=== PATIENT | male | born 1955 | race Caucasian/White ===

== ENCOUNTER 2018-03-02 15:57 | Emergency (ER) | payer SELFPAY ==
[2018-03-02 16:03] VITALS: BMI 34.4
--- NOTE | 2018-03-02 16:26 | ED PDOC ---
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 Patient notes that the pain worsens with movement. Patient denies having dysuria, vomiting, and a history of cancer. PMD: None provided Past Medical History Reviewed: Historical Data, Nursing Documentation, Vital Signs Vital Signs: Last Vital Signs Temp 98.6 F 03/02/18 16:02 Pulse 68 03/02/18 16:02 Resp 16 03/02/18 16:02 BP 197/89 H 03/02/18 16:02 Pulse Ox 98 03/02/18 16:02 - Medical History PMH: Diabetes, Hypercholesterolemia - Family History Family History: States: No Known Family Hx - Social History Current smoker - smoking cessation education provided: No Alcohol: None Drugs: Denies - Home Medications Home Medications: Ambulatory Orders Medication Instructions Recorded Cefuroxime Axetil [Cefuroxime] 500 mg PO BID #14 tablet 03/02/18 Ibuprofen [Motrin Tab] 600 mg PO Q8 PRN #21 tab 03/02/18 Tamsulosin HCl [Flomax] 0.4 mg PO DAILY #14 cap.er.24h 03/02/18 - Allergies Allergies/Adverse Reactions: Allergies Allergy/AdvReac Type Severity Reaction Status Date / Time No Known Allergies Allergy Verified 03/02/18 16:19 Review of Systems ROS Statement: Except As Marked, All Systems Reviewed And Found Negative Gastrointestinal: Negative for: Vomiting Genitourinary Male: Negative for: Dysuria Musculoskeletal: Positive for: Back Pain (lower) Physical Exam - Reviewed Nursing Documentation Reviewed: Yes Vital Signs Reviewed: Yes - Physical Exam Appears: Positive for: Well, Non-toxic, No Acute Distress Head Exam: Positive for: ATRAUMATIC, NORMOCEPHALIC Skin: Positive for: Normal Color, Warm, Dry Cardiovascular/Chest: Positive for: Regular Rate, Rhythm Respiratory: Positive for: Normal Breath Sounds Gastrointestinal/Abdominal: Positive for: Normal Exam, Soft. Negative for: [place] Back: Positive for: Other (paralumbar tenderness) Neurologic/Psych: Positive for: Alert, Oriented (3x) - Laboratory Results Result Diagrams: 03/02/18 16:50 03/02/18 16:50 - ECG O2 Sat by Pulse Oximetry: 98 (RA) Pulse Ox Interpretation: Normal - Radiology X-Ray: Viewed By Me, Read By Radiologist (see MDM note) - CT Scan/US CT abdomen and pelvis Other Rad Studies (CT/US): Read By Radiologist, Radiology Report Reviewed (see MDM note) - Progress ED Course And Treament: d/w Dr. Gonzalez. Rocephin 1 gm iv in ED. We will give rx for ceftin/flomax/motrin and patient to f/u in his office this week. Medical Decision Making Medical Decision Makin:10 Initial impression: 63 year old male with lower back pain. Initial plan: * XRay LS spine AP/LAT * CMP * lipase * CBC w/ diff * toradol 15 mg IVP * reevaluation 17:41 XRay LS spine read and reviewed by radiologist FINDINGS: BONES: Normal alignment. No listhesis. No fracture. DISC SPACES: Mild multilevel degenerative spondylosis of the lumbar spine.. There is moderate disc space narrowing at the L5-S1 level more so along the posterior disc margin with small marginal anterior osteophyte formation. Facets also slightly overgrown. Minor posterior disc space narrowing seen at the remaining levels with small marginal anterolateral osteophyte formation. OTHER FINDINGS: There is an elliptical shaped homogeneous hyperdense 14 mm x 10.5 mm homogeneous radiopaque density seen overlying the right parasagittal a anterior mid lower abdomen of uncertain etiology. IMPRESSION: No evidence of acute compression fractures no retropulsed fragments. Elliptical shaped hyperdense focus within the right mid/anterior abdomen of uncertain etiology. Clinical correlation recommended to determine whether additional imaging is required. 18:32 CT abdomen and pelvis read and reviewed by radiologist FINDINGS: LUNG BASES: There is mild scarring of the lung bases. LIVER: Unremarkable. GALLBLADDER AND BILE DUCTS: The gallbladder appears within normal limits. No radioopaque gallstones are seen. No biliary ductal dilatation is evident. PANCREAS: Unremarkable. SPLEEN: Unremarkable. ADRENAL GLANDS: There is a 2.1 cm right adrenal gland adenoma. KIDNEYS, URETERS, AND BLADDER: There is a 1.2 x 1.3 cm rounded calculus in the right renal collecting system. There is some fullness to the right renal collecting system. There is an approximate 3 x 2.8 cm cyst at the mid posterior aspect right kidney. Neither ureter appears dilated. Left kidney appears within normal limits. Prostate gland appears moderately enlarged. STOMACH AND BOWEL: Unremarkable appearance of the stomach and bowel. No evidence of bowel obstruction. No evidence suggesting enteritis or colitis. APPENDIX: No evidence of acute appendicitis on CT examination. PERITONEUM: No free fluid. No free air. LYMPH NODES: No lymphadenopathy is evident. VASCULATURE: No evidence of abdominal aortic aneurysm. BONES: No aggressive appearing osseous lesion. No acute osseous pathology evident. IMPRESSION: Rounded calculus measuring approximately 1.2 x 1.3 cm at the right renal collecting system with some prominence of the renal collecting system. Neither ureter dilated. Right renal cyst of 3 x 2.8 cm. Right adrenal gland adenoma. Moderate enlargement of the prostate gland. If warranted correlation with dedicated contrast-enhanced CT examination recommended. Scribe Attestation: Documented by Jackie Danielle, acting as a scribe for Hector Lipscomb PA-C. Provider Scribe Attestation: All medical record entries made by the Scribe were at my direction and personally dictated by me. I have reviewed the chart and agree that the record accurately reflects my personal performance of the history, physical exam, medical decision making, and the department course for this patient. I have also personally directed, reviewed, and agree with the discharge instructions and disposition. Disposition - Clinical Impression Clinical Impression: Renal stone - Patient ED Disposition Is Patient to be Admitted: No - Disposition Referrals: Manas Beckman MD [Staff Provider] - Disposition: Routine/Home Disposition Time: 19:24 Condition: FAIR Prescriptions: Cefuroxime Axetil [Cefuroxime] 500 mg PO BID #14 tablet Ibuprofen [Motrin Tab] 600 mg PO Q8 PRN #21 tab PRN Reason: Pain, Moderate (4-7) Tamsulosin HCl [Flomax] 0.4 mg PO DAILY #14 cap.er.24h Instructions: Kidney Stones in Adults
[2018-03-02 17:43] LABS: BASO # 0.1 K/uL (0.0-0.2); BASO % 0.9 % (0.0-2.0); EOS # 0.1 K/uL (0.0-0.7); EOS % 1.2 % (0.0-4.0); HEMOGLOBIN 15.1 g/dL (12.0-18.0); LYMPH # 2.9 K/uL (1.0-4.3); LYMPH % 28.7 % (20.0-40.0); MEAN CELL VOLUME 85.1 fl (80.0-94.0); MEAN CORPUSCULAR HEMOGLOBIN 28.7 pg (27.0-31.0); MEAN CORPUSCULAR HGB CONC 33.8 g/dL (33.0-37.0); MEAN PLATELET VOLUME 8.6 fl (7.2-11.7); MONO # 0.6 K/uL (0.0-0.8); MONO % 5.5 % (0.0-10.0); NEUT # 6.5 K/uL (1.8-7.0); NEUT % 63.7 % (50.0-75.0); NRBC % 0.2 % (0.0-0.0); RBC 5.26 Mil/uL (4.40-5.90); RED CELL DISTRIBUTION WIDTH 13.9 % (11.5-14.5); WHITE BLOOD COUNT 10.2 K/uL (4.8-10.8)
--- NOTE | 2018-03-02 17:46 | RAD ---
Date of service: 03/02/2018 PROCEDURE: Radiographs of the Lumbar Spine. HISTORY: lower back pain COMPARISON: No prior study available comparison. FINDINGS: BONES: Normal alignment. No listhesis. No fracture. DISC SPACES: Mild multilevel degenerative spondylosis of the lumbar spine.. There is moderate disc space narrowing at the L5-S1 level more so along the posterior disc margin with small marginal anterior osteophyte formation. Facets also slightly overgrown. Minor posterior disc space narrowing seen at the remaining levels with small marginal anterolateral osteophyte formation. OTHER FINDINGS: There is an elliptical shaped homogeneous hyperdense 14 mm x 10.5 mm homogeneous radiopaque density seen overlying the right parasagittal a anterior mid lower abdomen of uncertain etiology. IMPRESSION: No evidence of acute compression fractures no retropulsed fragments. Elliptical shaped hyperdense focus within the right mid/anterior abdomen of uncertain etiology. Clinical correlation recommended to determine whether additional imaging is required.
[2018-03-02 17:53] LABS: ALB/GLOB RATIO 1.3 (1.0-2.1); ALBUMIN 4.6 g/dL (3.5-5.0); BLOOD UREA NITROGEN 20 mg/dl (9-20); CALCIUM 9.7 mg/dL (8.4-10.2); GFR NON-AFRICAN AMERICAN > 60; LIPASE 286 U/L (23-300); URINE BILIRUBIN NEGATIVE (NEGATIVE); URINE BLOOD MODERATE (NEGATIVE); URINE CLARITY SLIGHTY-CLOUDY (Clear); URINE COLOR YELLOW (YELLOW); URINE GLUCOSE (UA) NEG (NEGATIVE); URINE LEUKOCYTE ESTERASE TRACE Leu/uL (Negative); URINE PROTEIN 30 mg/dL (NEGATIVE); URINE UROBILINOGEN 0.2-1.0 mg/dL (0.2-1.0)
[2018-03-02 17:58] LABS: ALT/SGPT 28 U/L (21-72); AST/SGOT 36 U/L (17-59)
[2018-03-02] MEDS ORDERED: Sodium Chloride 0.9% 1,000 ML IV SCH (18:15)
[2018-03-02] MEDS ORDERED: cefTRIAXone (Rocephin) 1 gm Inj IVPB ONE (19:23)
[2018-03-02 20:07] VITALS: BP 184/81; PULSE 71; RESP 15; TEMP 98.5; O2SAT 97
--- NOTE | 2018-03-03 14:36 | CT ---
Date of service: 03/02/2018 PROCEDURE: CT Abdomen and Pelvis. HISTORY: r/o kidney stone COMPARISON: None. TECHNIQUE: Contiguous axial images of the abdomen and pelvis performed in standard fashion without oral or intravenous contrast material. Additional 2D sagittal and coronal reformats generated. Radiation dose: Total exam DLP = 757.65 mGy-cm. This CT exam was performed using one or more of the following dose reduction techniques: Automated exposure control, adjustment of the mA and/or kV according to patient size, and/or use of iterative reconstruction technique. FINDINGS: LOWER THORAX: Heart is mildly enlarged. No significant pericardial effusion. Tiny hiatal hernia with slight wall thickening of the distal esophagus likely due to protrusion of gastric mucosa. The minor scarring changes seen in the lingular and middle lobe regions. LIVER: Unremarkable. No gross lesion or ductal dilatation. GALLBLADDER AND BILE DUCTS: Gallbladder is physiologically distended. No evidence of intraluminal gallbladder calculi. PANCREAS: Pancreas appears slightly atrophic and fatty replaced. No pancreatic masses collections or calcifications.. SPLEEN: Spleen measures approximately 13.9 cm in CC dimension however spleen exhibits normal size in the AP and transverse dimensions. ADRENALS: Bilateral adrenal adenomas, right side measuring approximately 2.5 cm and left side measuring approximately 2.3 cm. KIDNEYS AND URETERS: 1.2 cm calculus within the right renal pelvis with dilatation of the right renal pelvis and the surrounding infiltration. There is also an exophytic cyst posterior cortex mid to lower pole right kidney that measures approximately 3.9 by 2.6 cm. No evidence of left-sided nephrolithiasis or hydronephrosis. BLADDER: Urinary bladder is appears incompletely distended with minimal wall thickening. Findings likely due to incomplete distention and muscular hypertrophy however correlation with urinalysis recommended to exclude cystitis.. REPRODUCTIVE: Prostate gland measures approximately 5.1 cm in a transverse dimension. A. Findings likely due to BPH however correlation with PSA recommended. APPENDIX: Normal-appearing appendix best seen on coronal sequence image number [id number]. No periappendiceal inflammatory changes. BOWEL: Evaluation of the bowel is limited due to the lack of oral contrast material. Stomach is incompletely distended with slight thick-walled appearance. Visualized loops of small bowel exhibit normal contour and caliber. No evidence of acute mechanical small bowel obstruction. There are scattered colonic diverticula seen along the distal descending and sigmoid colon however no definitive radiographic evidence of acute diverticulitis. PERITONEUM: Unremarkable. No fluid collection. No free air. Small fat containing umbilical hernia. Small fat containing bilateral inguinal hernias. LYMPH NODES: Unremarkable. No enlarged lymph nodes. VASCULATURE: Unremarkable. No aortic aneurysm. Mild aortic atherosclerotic calcification or mural plaque present. BONES: Minor multilevel degenerative spondylosis of the lower thoracic and lumbar spine. OTHER FINDINGS: None. IMPRESSION: 1.2 cm calculus within slightly dilated right renal pelvis. There are also infiltration changes seen in the adjacent peripelvic fat. Right renal cyst. Diverticulosis without radiographic evidence of acute diverticulitis. Bilateral adrenal adenomas. Enlarged prostate gland. Correlation with PSA recommended.
== END 2018-03-02 20:07 | disposition home or self-care (01) ==
LOC: H.ER 15:57
DX: N20.0 Calculus of kidney (principal); E11.9 Type 2 diabetes mellitus without complications; E78.00 Pure hypercholesterolemia, unspecified; D35.01 Benign neoplasm of right adrenal gland; N28.1 Cyst of kidney, acquired
CPT/HCPCS: 72100; 74176; 80053; 81003; 83690; 85025; 96374; 99283; J1885; J7030